=== PATIENT | female | born 1995 | race Caucasian/White ===

== ENCOUNTER 2017-01-09 17:05 | Emergency (ER) | payer OTHER ==
[~2017-01-09] VITALS: Ht 165.1 cm; Wt 86.3 kg
[~2017-01-09 17:05] MED LIST: ALBUAER2 INH; BCPILLS PO; FLVHFAUNK; PLMIN200 INH; [UNRECOGNIZED DRUG - OTHER]
[2017-01-09 17:14] VITALS: TEMP 37.3; Ht 165.1 cm; Wt 86.3 kg
[2017-01-09] MEDS ORDERED: SULF800T23 PO (17:36)
[2017-01-09] MEDS ORDERED: ACET-749 PO (17:36)
[2017-01-09] MEDS ORDERED: ONDA4TAB10 SL (17:36)
[2017-01-09] MEDS ORDERED: FLVHFA110 INH (17:36)
[2017-01-09] MEDS ORDERED: TRET-55 TOP (17:36)
[2017-01-09] MEDS ORDERED: VNTHFA/IN INH (17:36)
[2017-01-09] MEDS ORDERED: BUDE180I INH (17:36)
[2017-01-09] MEDS ORDERED: DiphenhydrAMINE HCL 50 MG/ML VIAL IV STA (17:36)
[2017-01-09] MEDS ORDERED: LEVO50TA6 PO (17:40)
[2017-01-09] MEDS ORDERED: DEXAMETHASONE SOD INJ 10 MG/ML VIAL IV ONE (17:45)
--- NOTE | 2017-01-09 18:03 | DIAGNOSTIC IMAGING REPORT ---
CHEST ONE VIEW PORTABLE HISTORY: Short of breath. COMPARISON: None. FINDINGS: The lungs are clear. Cardiac silhouette is normal in size. No pleural effusions. No pneumothorax. IMPRESSION: No acute process. Electronically signed by: Albaro Hess M.D. 01/09/2017 6:01 PM Dictated Date/Time: 01/09/2017 6:00 PM
[2017-01-09 18:25] LABS: BASO % 0.2 %; BASO ABS # 0.02 K/uL (0-0.2); COMPLETE YES; EOS % 0.9 %; HEMATOCRIT 44.5 % (37-47); IG% 0.3 %; LYMPH % 36.6 %; LYMPH ABS # 3.93 K/uL (1.2-3.4); MEAN CELL VOLUME 85.1 fL (80-100); MEAN CORPUSCULAR HEMOGLOBIN 29.4 pg (25-34); MEAN CORPUSCULAR HGB CONC 34.6 g/dl (32-36); MEAN PLATELET VOLUME 11.2 fL (7.4-10.4); MONO % 7.3 %; NEUT % 54.7 %; PLATELET COUNT 221 K/uL (130-400); RED BLOOD COUNT 5.23 M/uL (4.2-5.4); WHITE BLOOD COUNT 10.75 K/uL (4.8-10.8)
[2017-01-09] MEDS ORDERED: KETOROLAC TROMETHAMINE 30 MG/ML VIAL IV STA (18:42)
[2017-01-09 18:48] LABS: BUN/CREATININE RATIO 10.7 (10-20); CALCIUM 9.3 mg/dl (8.5-10.1); CREATININE 0.79 mg/dl (0.60-1.20); POTASSIUM 3.8 mmol/L (3.5-5.1)
[2017-01-09 19:21] LABS: URINE APPEARANCE CLEAR (CLEAR); URINE BILIRUBIN NEG (NEG); URINE COLOR YELLOW; URINE NITRITE NEG (NEG); URINE PH 6.5 (4.5-7.5); UROBILINOGEN NEG (NEG)
[2017-01-09 19:37] LABS: MANUAL MICROSCOPIC REQUIRED? NO; REVIEW REQ? NO
[2017-01-09] MEDS ORDERED: OPTIRAY 320 IV PRN (21:15)
--- NOTE | 2017-01-09 22:02 | DIAGNOSTIC IMAGING REPORT ---
CHEST CTA for PULMONARY ARTERIES CT DOSE: 339.28 mGy.cm HISTORY: Short of breath. Atypical chest pain. TECHNIQUE: Multiaxial CT images of the chest were performed following the intravenous administration of contrast to evaluate the pulmonary arteries. Maximal intensity projection images were also obtained. COMPARISON STUDY: Chest 01/09/2017. FINDINGS: There is a normal caliber thoracic aorta with no evidence for dissection. There is no evidence for pulmonary embolus. No pleural effusions. No pneumothorax. The liver and spleen are unremarkable. No mediastinal or hilar lymphadenopathy. The central airways are patent. The lungs are clear. Surgical clips at the right thyroid bed. Soft tissue density within the anterior mediastinum is consistent with residual thymus given the patient's age. IMPRESSION: No evidence for pulmonary embolus. Prominent thymus. No masses identified. Electronically signed by: Albaro Hess M.D. 01/09/2017 9:59 PM Dictated Date/Time: 01/09/2017 9:53 PM
[2017-01-09 22:36] VITALS: BP 115/63; PULSE 84; O2SAT 100
--- NOTE | 2017-01-09 23:29 | EMERGENCY ROOM VISIT NOTE ---
History Report prepared by Eri: Zachariah Briseno Under the Supervision of: Dr. James Patton D.O. First contact with patient: 17:25 Chief Complaint: ALLERGIC REACTION Stated Complaint: ALLERGIC REACTION, TROUBLE BREATHING Nursing Triage Summary: Pt states, "I was seen at [facility] on Sun and told may have a partially collapsed lung and kidney stones. They gave me tylenol with codeine and now I am breaking out in hives so I can't take the pain medicine and I'm just a mess. I feel like it doesn't matter how deep of a breath I take I can't get enough air. " Took Benadryl at 0100, last dose at 1445. History of Present Illness The patient is a 21 year old female who presents to the Emergency Room with complaints of a sudden allergic reaction beginning one day prior to arrival. She currently rates her discomfort as an 8/10 in severity. The patient associates a global itchy rash and difficulty achieving a full breath with today 's symptoms. She states she began to feel itchy last night, noticed the rash three hours ago, and had difficulty breathing two and a half hours ago. The patient notes that when she tried to take a deep breath that "it doesn't feel like it's enough." She states she was evaluated at [facility] three days ago and was diagnosed with kidney stones. The patient notes she was given Tylenol with Codeine that she believes caused her allergic reaction. She states she was also prescribed Zofran and Bactrim that she filled three days ago. The patient notes she took one tablet of Benadryl at 0100 and 1445. She states she has a history of papillary thyroid cancer. Pt denies headache, change in vision, fevers, cough, runny nose, chest pain, nausea, vomiting, diarrhea, pain with urination, and melena. Patient denies any swelling, hemoptysis, recent trips, recent surgeries, or long trips. Source of History: patient Onset: one day [employer] Position: other (global) Symptom Intensity: 8/10 Quality: other (allergic reaction) Timing: other (sudden) Modifying Factors (Worsening): other (Tylenol with Codeine) Associated Symptoms: + rash (itchy global) Note: Associated symptoms: difficulty achieving a full breath Review of Systems See HPI for pertinent positives & negatives. A total of 10 systems reviewed and were otherwise negative. Past Medical & Surgical Medical Problems: (1) Asthma (2) Bronchitis (3) Pneumonia (4) Thyroid cancer Surgical Problems: (1) S/P thyroidectomy (2) S/P tonsillectomy Family History Patient reports no known family medical history. Social History Smoking Status: Never Smoker Marital Status: single Occupation Status: unemployed Current/Historical Medications Scheduled Control Pills ( Control Pills), 1 TAB PO DAILY Levothyroxine Sodium (Levothyroxine Sodium), 50 MCG PO DAILY Sulfa/Trimethoprim (Bactrim Ds 800MG/160MG), 1 TAB PO BID Tretinoin (Tretinoin), 1 APPLN TOP HS Scheduled PRN Acetaminophen/Codeine (Tylenol W/Codeine #3), 1 TAB PO DIRECTED PRN for Pain Albuterol Hfa (Ventolin Hfa), 2 PUFFS INH Q6H PRN for Shortness of Breath Budesonide (Inhalation) (Pulmicort Flexhaler), 2 PUFFS INH BID PRN for Shortness of Breath Fluticasone Propionate (Flovent Hfa), 2 PUFFS INH BID PRN for Shortness of Breath Ondasetron Odt (Zofran Odt), 4 MG SL Q6H PRN for Nausea or Vomiting Allergies Coded Allergies: No Known Allergies (Unverified , 01/09/17) Physical Exam Vital Signs Date Time Temp Pulse Resp B/P Pulse Ox O2 Delivery O2 Flow Rate FiO2 01/09/17 22:36 84 16 115/63 100 01/09/17 20:53 86 20 118/66 97 Room Air 01/09/17 19:36 118 20 126/78 99 Room Air 01/09/17 17:14 37.3 125 20 136/84 99 Room Air Physical Exam GENERAL: sitting up in bed, alert, well appearing, well nourished, no distress, non-toxic EYE EXAM: normal conjunctiva OROPHARYNX: no exudate, no erythema, lips, buccal mucosa, and tongue normal and mucous membranes are moist NECK: supple, no nuchal rigidity, no adenopathy, non-tender LUNGS: Clear to auscultation. Normal chest wall mechanics HEART: no murmurs, S1 normal and S2 normal ABDOMEN: abdomen soft, non-tender, normo-active bowel sounds, no masses, no rebound or guarding. BACK: Back is symmetrical on inspection and there is no deformity, no midline tenderness, no CVA tenderness. SKIN: Mild erythema on upper back and chest with slightly macular lesions. UPPER EXTREMITIES: upper extremities are grossly normal. LOWER EXTREMITIES: No pitting edema. NEURO EXAM: Normal sensorium, cranial nerves II-XII grossly intact, normal speech, no gross weakness of arms, no gross weakness of legs. Medical Decision & Procedures ER Provider Diagnostic Interpretation: Radiology results as stated below per my review and the radiologist's interpretation: CHEST ONE VIEW PORTABLE HISTORY: Short of breath. COMPARISON: None. FINDINGS: The lungs are clear. Cardiac silhouette is normal in size. No pleural effusions. No pneumothorax. IMPRESSION: No acute process. Electronically signed by: Albaro Hess M.D. 01/09/2017 6:01 PM CHEST CTA for PULMONARY ARTERIES CT DOSE: 339.28 mGy.cm HISTORY: Short of breath. Atypical chest pain. TECHNIQUE: Multiaxial CT images of the chest were performed following the intravenous administration of contrast to evaluate the pulmonary arteries. Maximal intensity projection images were also obtained. COMPARISON STUDY: Chest 01/09/2017. FINDINGS: There is a normal caliber thoracic aorta with no evidence for dissection. There is no evidence for pulmonary embolus. No pleural effusions. No pneumothorax. The liver and spleen are unremarkable. No mediastinal or hilar lymphadenopathy. The central airways are patent. The lungs are clear. Surgical clips at the right thyroid bed. Soft tissue density within the anterior mediastinum is consistent with residual thymus given the patient's age. IMPRESSION: No evidence for pulmonary embolus. Prominent thymus. No masses identified. Electronically signed by: Albaro Hess M.D. 01/09/2017 9:59 PM Laboratory Results 01/09/17 18:15 Red Blood Count 5.23, Mean Corpuscular Volume 85.1, Mean Corpuscular Hemoglobin 29.4, Mean Corpuscular Hemoglobin Concent 34.6, Mean Platelet Volume 11.2, Neutrophils (%) (Auto) 54.7, Lymphocytes (%) (Auto) 36.6, Monocytes (%) (Auto) 7.3, Eosinophils (%) (Auto) 0.9, Basophils (%) (Auto) 0.2, Neutrophils # (Auto) 5.89, Lymphocytes # (Auto) 3.93, Monocytes # (Auto) 0.78, Eosinophils # (Auto) 0.10, Basophils # (Auto) 0.02 01/09/17 18:15 Test 01/09/17 18:00 01/09/17 18:15 Urine Color YELLOW Urine Appearance CLEAR (CLEAR) Urine pH 6.5 (4.5-7.5) Urine Specific [place] 1.010 (1.000-1.030) Urine Protein NEG (NEG) Urine Glucose (UA) NEG (NEG) Urine Ketones NEG (NEG) Urine Occult Blood NEG (NEG) Urine Nitrite NEG (NEG) Urine Bilirubin NEG (NEG) Urine Urobilinogen NEG (NEG) Urine Leukocyte Esterase NEG (NEG) Urine WBC (Auto) 0 /hpf (0-5) Urine RBC (Auto) 0-4 /hpf (0-4) Urine Hyaline Casts (Auto) 0 /lpf (0-5) Urine Epithelial Cells (Auto) 10-20 /lpf (0-5) Urine Bacteria (Auto) NEG (NEG) White Blood Count 10.75 K/uL (4.8-10.8) Red Blood Count 5.23 M/uL (4.2-5.4) Hemoglobin 15.4 g/dL (12.0-16.0) Hematocrit 44.5 % (37-47) Mean Corpuscular Volume 85.1 fL (80-100) Mean Corpuscular Hemoglobin 29.4 pg (25-34) Mean Corpuscular Hemoglobin Concent 34.6 g/dl (32-36) Platelet Count 221 K/uL (130-400) Mean Platelet Volume 11.2 fL (7.4-10.4) Neutrophils (%) (Auto) 54.7 % Lymphocytes (%) (Auto) 36.6 % Monocytes (%) (Auto) 7.3 % Eosinophils (%) (Auto) 0.9 % Basophils (%) (Auto) 0.2 % Neutrophils # (Auto) 5.89 K/uL (1.4-6.5) Lymphocytes # (Auto) 3.93 K/uL (1.2-3.4) Monocytes # (Auto) 0.78 K/uL (0.11-0.59) Eosinophils # (Auto) 0.10 K/uL (0-0.5) Basophils # (Auto) 0.02 K/uL (0-0.2) RDW Standard Deviation 41.7 fL (36.4-46.3) RDW Coefficient of Variation 13.4 % (11.5-14.5) Immature Granulocyte % (Auto) 0.3 % Immature Granulocyte # (Auto) 0.03 K/uL (0.00-0.02) D-Dimer 650 ug/L FEU (0-500) Anion Gap 4.0 mmol/L (3-11) Est Creatinine Clear Calc Drug Dose 120.2 ml/min Estimated GFR () 122.3 Estimated GFR (Non- 105.5 BUN/Creatinine Ratio 10.7 (10-20) Calcium Level 9.3 mg/dl (8.5-10.1) Total Bilirubin 0.3 mg/dl (0.2-1) Direct Bilirubin 0.1 mg/dl (0-0.2) Aspartate Amino Transf (AST/SGOT) 22 U/L (15-37) Alanine Aminotransferase (ALT/SGPT) 49 U/L (12-78) Alkaline Phosphatase 99 U/L (45-117) Total Protein 7.9 gm/dl (6.4-8.2) Albumin 4.1 gm/dl (3.4-5.0) Laboratory results per my review. Medications Administered Medications (Trade) Dose Ordered Sig/Raeann Route Start Time Stop Time Status Last Admin Dose Admin Diphenhydramine HCl (Benadryl Inj) 25 mg NOW STAT IV 01/09/17 17:36 01/09/17 17:38 DC 01/09/17 18:38 25 MG Dexamethasone Sodium Phosphate (Decadron Inj) 10 mg NOW ONCE IV 01/09/17 17:45 01/09/17 17:46 DC 01/09/17 18:38 10 MG Ketorolac Tromethamine (Toradol Inj) 30 mg NOW STAT IV 01/09/17 18:42 01/09/17 18:43 DC 01/09/17 19:33 30 MG ECG Indication: other (allergic reaction) Rate (beats per minute): 98 Rhythm: sinus rhythm Findings: RBBB (incomplete in septal), other (normal axis) ED Course ED COURSE: Vital signs were reviewed and showed tachycardia. The patients medical record was reviewed The above diagnostic studies were performed and reviewed. ED treatments and interventions as stated above. 1729: The patient was evaluated in room B2. A complete history and physical examination was performed. 173: Ordered Benadryl Inj 25 mg IV. 174: Ordered Decadron Inj 10 mg IV. It is noted the [facility] [address] records showed a CT that revealed a 4X3 mm calcification of the dependent right bladder which may involved the right UVJ. 184: Ordered Toradol Inj 30 mg IV. 2115: Updated the patient at this time. 2221: Upon reevaluation, the patient is doing well.I discussed my findings with the patient and she understands and agrees with the treatment plan. Based on the patients age, coexisting illnesses, exam and lab findings the decision to treat as an outpatient was made. The patient remained stable while under my care. The patient appeared well at the time of discharge. Medical Decision Differential diagnosis: Etiologies such as allergic reaction, anaphylaxis, urticaria, De La Cruz-Gutierrez syndrome, toxic epidermal necrolysis, erythema multiforme, cellulitis, as well as others were entertained. Patient is a 21-year-old female who presents the ER for allergic reaction to T3 associated with shortness of breath when she takes a deep breath. She does have a history of cancer. D-dimer was obtained and was positive. She is given Benadryl and steroids with complete resolution of the rash. EKG was unremarkable. Chest x-ray was normal. CBC along with BMP, LFTs and bilirubin were normal. UA was negative. With the positive d-dimer and history of cancer , CT PE was performed and was negative. Patient was updated at bedside. She felt significantly better. She was discharged with allergic reaction and instructed to follow-up with her PCP. Did not give her any narcotics as it would appear from [place] CT that she passed the kidney stone that she has no blood in her urine at this time. Discussed with Pt concerning signs and symptoms to watch out for. Pt was instructed to follow up with their PCP and discussed with the patient their option to return to the ED at anytime for persistent or worsening symptoms. The appropriate anticipatory guidance and out- patient management, including indications for return to the emergency department , were explained at length to the patient and understood. Impression Primary Impression: Allergic reaction Additional Impression: SOB (shortness of breath) Scribe Attestation The scribe's documentation has been prepared under my direction and personally reviewed by me in its entirety. I confirm that the note above accurately reflects all work, treatment, procedures, and medical decision making performed by me. Departure Information Dispostion Home / Self-Care Referrals No Doctor, Assigned (PCP) Forms HOME CARE DOCUMENTATION FORM, IMPORTANT VISIT INFORMATION Patient Instructions ED Allergic Reaction General Other, My [facility] Additional Instructions Please follow up with your primary care doctor with in the next 24 hours. Any worsening of your symptoms, please return to the ED immediately. This includes any swelling of your throat, shortness of breath, chest pain, passing out or any other concerning signs or symptoms from your standpoint. Based take Benadryl 50 mg 3 times a day as needed for itching. Problem Qualifiers Primary Impression: Allergic reaction Encounter type: initial encounter Qualified Codes: T78.40XA - Allergy, unspecified, initial encounter
== END 2017-01-09 22:37 | disposition home or self-care (01) ==
LOC: C.EDB 17:14
DX: T78.40XA Allergy, unspecified, initial encounter (principal); X58.XXXA Exposure to other specified factors, initial encounter; R06.02 Shortness of breath; Z85.850 Personal history of malignant neoplasm of thyroid; Z87.01 Personal history of pneumonia (recurrent); J45.909 Unspecified asthma, uncomplicated; E89.0 Postprocedural hypothyroidism; Z87.442 Personal history of urinary calculi; Z90.89 Acquired absence of other organs; Z79.899 Other long term (current) drug therapy

== ENCOUNTER → 2017-04-08 | Outpatient (CLI) | payer OTHER ==
[~2017-04-08] MED LIST changes: +ACET-749 PO; -ALBUAER2 INH; +BUDE180I INH; +FLVHFA110 INH; -FLVHFAUNK; +LEVO50TA6 PO; +ONDA4TAB10 SL; -PLMIN200 INH; +SULF800T23 PO; +TRET0.0522 TOP; +VNTHFA/IN INH; -[UNRECOGNIZED DRUG - OTHER]
[2017-04-08 18:29] LABS: THYROID STIMULATING HORMONE 0.052 uIu/ml (0.300-4.500)
[2017-04-10 17:13] LABS: THYROGLOBULIN 0.2 NG/ML (2.8-40.9)
== END | disposition home or self-care (01) ==
LOC: C.LABMFLN 11:39
PROVIDERS: ATTEND Internal Medicine Endocrinology, Diabetes & Metabolism
DX: E89.0 Postprocedural hypothyroidism (principal)

== ENCOUNTER 2017-08-14 16:44 | Emergency (ER) | payer OTHER ==
[~2017-08-14] VITALS: Ht 162.6 cm; Wt 85.2 kg
[~2017-08-14 16:44] MED LIST changes: +TRET-55 TOP; -TRET0.0522 TOP
[2017-08-14 16:47] VITALS: Ht 162.6 cm; Wt 85.2 kg
[2017-08-14] MEDS ORDERED: LEVO150T PO (17:12)
[2017-08-14] MEDS ORDERED: ITRA100C PO (17:13)
[2017-08-14] MEDS ORDERED: ACETAMINOPHEN 500 MG TAB PO STA (17:21)
[2017-08-14] MEDS ORDERED: KETOROLAC TROMETHAMINE 30 MG/ML VIAL IV STA (17:21)
--- NOTE | 2017-08-14 17:26 | EMERGENCY ROOM VISIT NOTE ---
History First contact with patient: 17:01 Chief Complaint: FEVER Stated Complaint: FEVER History of Present Illness The patient is a 22 year old female who presents to the Emergency Room with complaints of a intermittent fever and cough for the last month. The patient reports getting diagnosed with histoplasmosis 2 months ago. She started itraconazole 1 month ago. She has had these symptoms since. She'll show notes a rash that started on her abdomen and back yesterday. It is not itchy. She denies any other new medications, soaps or detergents. The patient has taken Tylenol with minimal relief of her symptoms. She denies any nausea, vomiting, diarrhea or abdominal pain. No runny nose. She denies any ear pain or throat pain. Review of Systems 10 system review performed and negative unless noted in HPI or below Past Medical/Surgical History Medical Problems: (1) Asthma (2) Bronchitis (3) Pneumonia (4) Thyroid cancer Surgical Problems: (1) S/P thyroidectomy (2) S/P tonsillectomy Histoplasmosis Family History Patient reports no known family medical history. Social History Smoking Status: Never Smoker Marital Status: single Occupation Status: unemployed Current/Historical Medications Scheduled Control Pills ( Control Pills), 1 TAB PO DAILY Itraconazole (Sporanox), 200 MG PO BID Levothyroxine Sodium (Synthroid), 150 MCG PO DAILY Scheduled PRN Albuterol Hfa (Ventolin Hfa), 2 PUFFS INH Q6H PRN for Shortness of Breath Ondasetron Odt (Zofran Odt), 4 MG SL Q6H PRN for Nausea or Vomiting Physical Exam Vital Signs Date Time Temp Pulse Resp B/P (MAP) Pulse Ox O2 Delivery O2 Flow Rate FiO2 08/14/17 19:15 67 17 108/62 99 Room Air 08/14/17 19:13 37.1 08/14/17 16:47 37.1 101 18 135/88 99 Room Air Physical Exam VITALS: Vitals are noted on the nurse's note and reviewed by myself. Vital signs stable. GENERAL: 22-year-old female, in no acute distress, nondiaphoretic, well- developed well-nourished. SKIN: Approximately 6 erythematous, not raised, circular, blanching lesions noted to the abdomen. 3 similar appearing lesions on the back. HEAD: Normocephalic atraumatic. EARS: External auditory canals clear, tympanic membranes pearly george without erythema or effusion bilaterally. EYES: Conjunctivae without injection, sclerae without icterus. Extraocular movements intact. NOSE:No sinus tenderness. MOUTH: Mucous membranes moist. Tonsils are not enlarged. Pharynx without erythema or exudate. Uvula midline. Airway patent. Tongue does not deviate. NECK: Supple without nuchal rigidity. No lymphadenopathy. Cervical spine is nontender. No JVD. HEART: Regular rate and rhythm without murmurs gallops or rubs. LUNGS: Clear to auscultation bilaterally without wheezes, rales or rhonchi. No accessory muscle use. ABDOMEN: Positive bowel sounds x 4.Soft, nontender, without organomegaly. No guarding or rebound tenderness. MUSCULOSKELETAL: No muscle atrophy, erythema, or edema noted. Strength 5/5 throughout. NEURO: Patient was alert and oriented to person place and time. Normal sensation to touch. No focal neurological deficits. Medical Decision & Procedures ER Provider Diagnostic Interpretation: CXR Patient Name: ROCK BEAULIEU V Unit Number: [id number] Dictated: 08/14/171842 Transcribed: 08/14/171842 [facility] Printed Date/Time: [~ rep prt dt]/[~ rep prt tm] [~ rep ct labl] - [~ rep ct ivnm] [facility] [place] [place] [address] Dictated: 08/14/171842 Transcribed: 08/14/171842 [facility] Printed Date/Time: [~ rep prt dt]/[~ rep prt tm] [~ rep ct labl] - [~ rep ct ivnm] IMPRESSION: No acute cardiopulmonary process. The above report was generated using voice recognition software. It may contain grammatical, syntax or spelling errors. Electronically signed by: Luigi Bryant M.D. 08/14/2017 6:43 PM Dictated Date/Time: 08/14/2017 6:43 PM The status of this report is Signed. Draft = Not yet reviewed or approved by Radiologist. Signed = Reviewed and approved by Radiologist. <AttendingPhy></AttendingPhy> <FamilyPhy>No Doctor, Assigned</FamilyPhy> < PrimaryPhy>No Doctor, Assigned</PrimaryPhy> <UnitNumber>[id number]</UnitNumber> <VisitNumber>[id number]</VisitNumber> <PatientName>ROCK BEAULIEU V</ PatientName> <DateOfBirth>1995</DateOfBirth> <Location>[facility]</Location> < ServiceDate>08/14/17</ServiceDate> <MNE>ESINDI</MNE> <OrderingPhy>Meredith Burgos PA-C</OrderingPhy> <OrderingPhyMNE>f rep ord dr taylor</OrderingPhyMNE> < DictatingPhyMNE>f rep dict dr taylor</DictatingPhyMNE> <CCListMNE>f rep ct mne</ CCListMNE> <AdmittingPhyMNE>f pt admit dr taylor</AdmittingPhyMNE> <AttendingPhyMNE >f pt attend dr taylor</AttendingPhyMNE> <ConsultingPhyMNE>f pt consult dr taylor</ConsultingPhyMNE> <FamilyPhyMNE>f pt fam dr taylor</FamilyPhyMNE> <OtherPhyMNE>f pt other dr taylor</OtherPhyMNE> < PrimaryPhyMNE>f pt prim care dr taylor</PrimaryPhyMNE> <ReferringPhyMNE>f pt referring dr taylor</ReferringPhyMNE> Laboratory Results 08/14/17 17:40 Red Blood Count 4.56, Mean Corpuscular Volume 91.2, Mean Corpuscular Hemoglobin 30.3, Mean Corpuscular Hemoglobin Concent 33.2, Mean Platelet Volume 10.6, Neutrophils (%) (Auto) 50.2, Lymphocytes (%) (Auto) 39.8, Monocytes (%) (Auto) 8.4, Eosinophils (%) (Auto) 1.1, Basophils (%) (Auto) 0.4, Neutrophils # (Auto) 4.53, Lymphocytes # (Auto) 3.60, Monocytes # (Auto) 0.76, Eosinophils # (Auto) 0.10, Basophils # (Auto) 0.04 08/14/17 17:40 Test 08/14/17 17:40 08/14/17 18:00 White Blood Count 9.04 K/uL (4.8-10.8) Red Blood Count 4.56 M/uL (4.2-5.4) Hemoglobin 13.8 g/dL (12.0-16.0) Hematocrit 41.6 % (37-47) Mean Corpuscular Volume 91.2 fL (80-100) Mean Corpuscular Hemoglobin 30.3 pg (25-34) Mean Corpuscular Hemoglobin Concent 33.2 g/dl (32-36) Platelet Count 209 K/uL (130-400) Mean Platelet Volume 10.6 fL (7.4-10.4) Neutrophils (%) (Auto) 50.2 % Lymphocytes (%) (Auto) 39.8 % Monocytes (%) (Auto) 8.4 % Eosinophils (%) (Auto) 1.1 % Basophils (%) (Auto) 0.4 % Neutrophils # (Auto) 4.53 K/uL (1.4-6.5) Lymphocytes # (Auto) 3.60 K/uL (1.2-3.4) Monocytes # (Auto) 0.76 K/uL (0.11-0.59) Eosinophils # (Auto) 0.10 K/uL (0-0.5) Basophils # (Auto) 0.04 K/uL (0-0.2) RDW Standard Deviation 46.6 fL (36.4-46.3) RDW Coefficient of Variation 14.0 % (11.5-14.5) Immature Granulocyte % (Auto) 0.1 % Immature Granulocyte # (Auto) 0.01 K/uL (0.00-0.02) Urine Color YELLOW Urine Appearance CLOUDY (CLEAR) Urine pH 8.5 (4.5-7.5) Urine Specific Benton 1.020 (1.000-1.030) Urine Protein NEG (NEG) Urine Glucose (UA) NEG (NEG) Urine Ketones NEG (NEG) Urine Occult Blood NEG (NEG) Urine Nitrite NEG (NEG) Urine Bilirubin NEG (NEG) Urine Urobilinogen NEG (NEG) Urine Leukocyte Esterase NEG (NEG) Urine WBC (Auto) 1-5 /hpf (0-5) Urine RBC (Auto) 0-4 /hpf (0-4) Urine Hyaline Casts (Auto) 0 /lpf (0-5) Urine Epithelial Cells (Auto) 20-30 /lpf (0-5) Urine Bacteria (Auto) NEG (NEG) Urine Test NEG (NEG) Anion Gap 6.0 mmol/L (3-11) Est Creatinine Clear Calc Drug Dose 101.8 ml/min Estimated GFR () 103.7 Estimated GFR (Non- 89.5 BUN/Creatinine Ratio 13.0 (10-20) Calcium Level 8.7 mg/dl (8.5-10.1) Total Bilirubin 0.2 mg/dl (0.2-1) Aspartate Amino Transf (AST/SGOT) 14 U/L (15-37) Alanine Aminotransferase (ALT/SGPT) 20 U/L (12-78) Alkaline Phosphatase 72 U/L (45-117) Total Protein 7.3 gm/dl (6.4-8.2) Albumin 3.8 gm/dl (3.4-5.0) Globulin 3.5 gm/dl (2.5-4.0) Albumin/Globulin Ratio 1.1 (0.9-2) Thyroid Stimulating Hormone (TSH) 65.500 uIu/ml (0.300-4.500) Lyme Disease IgG Antibody NEG (NEG) Lyme Disease IgM Antibody NEG (NEG) Influenza Type A (RT-PCR) Neg for Influ A (NEG) Influenza Type B (RT-PCR) Neg for Influ B (NEG) Medications Administered Medications (Trade) Dose Ordered Sig/Raeann Route Start Time Stop Time Status Last Admin Dose Admin Ketorolac Tromethamine (Toradol Inj) 30 mg NOW STAT IV 08/14/17 17:21 08/14/17 17:23 DC 08/14/17 18:02 30 MG Acetaminophen (Tylenol Tab) 1,000 mg NOW STAT PO 08/14/17 17:21 08/14/17 17:23 DC 08/14/17 18:02 1,000 MG ED Course Patient was seen and examined Vital signs including blood pressure were reviewed medications list was verified with patient Labs were obtained, and a saline lock was established Upon reevaluation, the patient was feeling better. We discussed the results of her workup. She voiced understanding. A case was also discussed with my supervising physician, and subsequently Dr. Milligan from infectious disease. I reviewed discharge instructions the patient. They voiced understanding and had no further questions. Medical Decision Differential diagnosis: Infectious etiologies such as influenza, Lyme disease, UTI, pharyngitis, septicemia, endocarditis, histoplasmosis were entertained among others This patient is a 22-year-old female that presents to the emergency department with complaints of feverish symptoms, body aches and fatigue over the last month. The patient is currently being treated for histoplasmosis. On exam, the patient was nontoxic in appearance. Her workup reveals no leukocytosis. Her influenza swab is negative. Lyme screen is also negative. Chest x-ray did not show any acute findings. Her urinalysis is also clean. Her TSH is significantly high. A free T4 was added. The patient does not have a primary care physician or an infectious disease specialist in the area. I believe she is likely stable to be discharged home; however, she will need close follow-up. The case was discussed with Dr. Milligan from infectious disease. The patient was instructed to call Dr. Milligan in the morning for a follow-up appointment. She was also given a list of primary care physicians in the area. Adjustments will obviously need to be made to her Synthroid. The patient is comfortable with this plan. She agrees to return to the emergency department with any new or worsening symptoms. This chart was completed in part utilizing [employer] Voice Recognition software. Attempts were made to minimize the grammatical errors, random word insertions, pronoun errors and incomplete sentences. Any formal questions or concerns about the content, text or information contained within the body of this dictation should be directly addressed to the provider for clarification. Medication Reconcilliation Current Medication List: was personally reviewed by nd Blood Pressure Screening Patient's blood pressure: Normal blood pressure Consults Consulting Physician: Dr. Milligan Impression Primary Impression: Fever Departure Information Dispostion Home / Self-Care Condition GOOD Referrals Demetrice Taylor M.D. (PCP) Jennifer. Milligan D.O. Patient Instructions My [facility] Additional Instructions You were evaluated in the emergency department today for a fever. No signs of new infection were found. Please follow-up with Dr. Milligan from infectious disease. Please call tomorrow morning for a follow-up appointment. Please also follow up with a primary care physician. A list of providers has been provided to you. Your thyroid level was significantly abnormal today. Her medications will likely need to be adjusted. Please contact your primary care provider for further guidance. Please do not hesitate to return to the emergency department with any new, worsening or concerning symptoms
[2017-08-14 18:04] LABS: BASO % 0.4 %; BASO ABS # 0.04 K/uL (0-0.2); COMPLETE YES; EOS % 1.1 %; HEMATOCRIT 41.6 % (37-47); IG% 0.1 %; LYMPH % 39.8 %; MEAN CELL VOLUME 91.2 fL (80-100); MEAN CORPUSCULAR HEMOGLOBIN 30.3 pg (25-34); MEAN CORPUSCULAR HGB CONC 33.2 g/dl (32-36); MEAN PLATELET VOLUME 10.6 fL (7.4-10.4); MONO % 8.4 %; NEUT % 50.2 %; PLATELET COUNT 209 K/uL (130-400); RED BLOOD COUNT 4.56 M/uL (4.2-5.4); WHITE BLOOD COUNT 9.04 K/uL (4.8-10.8)
[2017-08-14 18:10] LABS: URINE APPEARANCE CLOUDY (CLEAR); URINE BILIRUBIN NEG (NEG); URINE COLOR YELLOW; URINE EPITHELIAL CELL AUTO 20-30 /lpf (0-5); URINE NITRITE NEG (NEG); URINE PH 8.5 (4.5-7.5); UROBILINOGEN NEG (NEG)
[2017-08-14 18:13] LABS: MANUAL MICROSCOPIC REQUIRED? NO; REVIEW REQ? NO
[2017-08-14 18:22] LABS: CALCIUM 8.7 mg/dl (8.5-10.1); CREATININE 0.9 mg/dl (0.60-1.20); POTASSIUM 3.4 mmol/L (3.5-5.1)
[2017-08-14 18:25] LABS: ALB/GLOB RATIO 1.1 (0.9-2)
--- NOTE | 2017-08-14 18:45 | DIAGNOSTIC IMAGING REPORT ---
CHEST 2 VIEWS ROUTINE HISTORY: 22 years-old Female fever cough acute cough and fever COMPARISON: Chest radiograph and CTA chest 01/09/2017 TECHNIQUE: PA and lateral views of the chest FINDINGS: Cardiomediastinal and hilar silhouettes are within normal limits. Surgical clips project over the lower neck. No pneumothorax, pleural effusion, focal airspace consolidation or overt pulmonary edema. The bones of the chest are grossly intact. IMPRESSION: No acute cardiopulmonary process. The above report was generated using voice recognition software. It may contain grammatical, syntax or spelling errors. Electronically signed by: Luigi Bryant M.D. 08/14/2017 6:43 PM Dictated Date/Time: 08/14/2017 6:43 PM
[2017-08-14 19:00] LABS: LYME DISEASE AB IGG NEG (NEG); LYME DISEASE AB IGM NEG (NEG)
[2017-08-14 19:15] LABS: INFLUENZA A PCR Neg for Influ A (NEG); INFLUENZA B PCR Neg for Influ B (NEG)
[2017-08-14 21:23] VITALS: BP 111/65; PULSE 70; TEMP 37.2; O2SAT 98
== END 2017-08-14 21:25 | disposition home or self-care (01) ==
LOC: C.EDB 16:46 → C.EDC 21:25
DX: R50.9 Fever, unspecified (principal); B39.9 Histoplasmosis, unspecified; J45.909 Unspecified asthma, uncomplicated; Z87.01 Personal history of pneumonia (recurrent); Z85.850 Personal history of malignant neoplasm of thyroid; E89.0 Postprocedural hypothyroidism; Z79.3 Long term (current) use of hormonal contraceptives; Z79.899 Other long term (current) drug therapy